=== PATIENT | female | born 1955 | race Caucasian/White ===

== ENCOUNTER 2017-08-21 18:50 | Inpatient (IN) | payer BC ==
[2017-08-21] VITALS (17 sets, daily range): BP systolic 82–128; BP diastolic 40–88
[~2017-08-21] VITALS: Ht 167.6 cm; Wt 62.2 kg
--- NOTE | ~2017-08-21 | PR ---
[place], [place] PROGRESS NOTE NAME: SUZANNE VALDIVIA UNIT #: [id number] ROOM: [facility] DOCTOR: LYNDON WORTHY MD BIRTHDATE: [birth year] DOS: 08/25/2017 SUBJECTIVE: She has a bronchoscopy done yesterday with removal of mucus plug from major airways. The patient underwent EGD later and the patient was still intubated. The endoscopy was completed for this patient yesterday and EGD was noted with evidence of a denture displaced present in the hypopharynx. The denture was pulled out. These were noted as upper dentures. She was further continued and the patient completed the endoscopy. The patient noted several ulcer in the stomach, most likely resulting in GI bleeding. During course of procedure, the patient was accidentally extubated as well. The endotracheal tube was removed; however, post-extubation she has done well and was started on BiPAP that has been tolerated by the patient for several hours. This morning, the patient still appeared to be somewhat sleepy, but used the BiPAP and oxygen supplementation. She has not been noted any symptoms of chest pain. Low grade fever noted rectally and orally. OBJECTIVE: VITAL SIGNS: Temperature 99.9 degree Fahrenheit with a T-max recorded. Intake is 2000, output 800 mL. The pulse oxygen saturation of the patient on 5 liter nasal cannula simple face mask was 98% saturation. HEENT: Examination shows head was atraumatic. Eyes nonicterus. NECK: Supple. CARDIOVASCULAR: S1, S2 is audible. LUNGS: Noted with decreased breath sounds in the lungs. Scattered wheezing. ABDOMEN: Soft, nontender. LABORATORY DATA: The patient's CMP today, normal BUN and creatinine. Phosphorus was 1.4. Urine antigen, streptococcal pneumonia was noted as positive. Legionella antigen noted negative. Bronchial washing culture was noted no bacterial growth, preliminary final culture results were pending. Gram stain bronchial washing yesterday, few white blood cells, no epithelial cells, no microorganisms. IMPRESSION: 1. The patient who has been currently noted with acute pneumonia, streptococcal pneumonia with acute severe hypercapnic and hypoxic respiratory failure with exacerbation of chronic obstructive pulmonary disease. 2. Gastrointestinal bleeding with peptic ulcers. PLAN OF MANAGEMENT: Obtain arterial blood gas for the patient to reassess the ventilatory status. Continue antibiotic for this patient as directed for the streptococcal pneumonia management. Bronchodilators to be continued. The dose of Solu-Medrol will be decreased to 40 mg b.i.d. from today. All other previous treatment to be continued. Usual care. Additional treatment changes to be made based on progression of illness. Use of the BiPAP will be continued. Adjustment of BiPAP might be necessary depending upon assessment of the new arterial blood gases. [place], [place] PROGRESS NOTE NAME: SUZANNE VALDIVIA UNIT #: [id number] ROOM: [facility] DOCTOR: LYNDON WORTHY MD BIRTHDATE: [birth year] LYNDON BERMUDEZ MD CM:JAS [id number] LYNDON CONNER MD 08/26/17 0003 interface
--- NOTE | ~2017-08-21 | PR ---
[place], [place] PROGRESS NOTE NAME: SUZANNE VALDIVIA UNIT #: [id number] ROOM: [facility] DOCTOR: AIDAN CONNER MD,LYNDON BIRTHDATE: [birth year] DOS: 08/26/2017 SUBJECTIVE: The patient has been noted comfortable at this time without any distress, much more awake and alert than yesterday. She has not been reported any symptoms of chest pain or hemoptysis. The patient could not take much of oral food at this time. She has not taken her usual care, which has been ordered because of the lack of oral intake. She has now been noted with symptoms of hemoptysis with the BiPAP as ordered. Limited symptoms reviewed given the patient's current overall status. She has not been noted any active bleeding or GI tract. OBJECTIVE: VITAL SIGNS: Showed normal temperature, respiratory rate 19, heart rate 75, blood pressure 123/78 and 121/85, pulse oxygen saturation on 35% Venturi mask 92% with 40% oxygen, 94% saturation. HEENT: Shows head was atraumatic. Eyes nonicterus. NECK: Supple. CARDIOVASCULAR: S1, S2 audible. LUNGS: Noted moderate decreased breath sounds noted in the lungs bilaterally. ABDOMEN: Soft, nontender. Bowel sounds present. EXTREMITIES: Noted without any acute edema at this time. MUSCULOSKELETAL: Symptoms visible, no deformities. GENITOURINARY: General weakness, fatigue were noted, does not appear to have an acute focal deficits. SKIN: Visible skin, no lesions or rashes. LABORATORY DATA: CMP this morning noted normal BUN and creatinine. Sodium 150, chloride of 109, carbon dioxide 35, AST 104, ALT 73. Arterial blood gas of yesterday, pH of 7.39, pCO2 of 50, pO2 of 49 on 40% Venturi mask. The culture bronchial washing noted as normal michael. IMPRESSION: 1. Acute Streptococcal pneumonia. 2. Acute but stable severe hypoxic respiratory failure with resolution of hypercapnia. 3. Lack of oral intake. 4. Hypernatremia was also noted. 5. Oral general debility remains persistent. 6. Exacerbation of chronic obstructive pulmonary disease as well. PLAN OF TREATMENT: Continuation of the current therapy at this time has been in progress. Continue bronchodilators, oxygen supplementation, continue antibiotics. Continue current dose of corticosteroids, no changes, bedside physical therapy, obtaining a new chest x-ray for assessment of any further changes on the respiratory status. Continue medical management, ____. [place], [place] PROGRESS NOTE NAME: SUZANNE VALDIVIA UNIT #: [id number] ROOM: [facility] DOCTOR: AIDAN CONNER MD,LYNDON BIRTHDATE: [birth year] LYNDON BERMUDEZ MD CM:JAS [phone] LYNDON CONNER MD 08/27/17 0158 interface
--- NOTE | ~2017-08-21 | CON ---
[place], [place] REPORT OF CONSULTATION NAME: SUZANNE VALDIVIA UNIT #: [id number] ROOM: [facility] DOCTOR: LYNDON WORTHY MD BIRTHDATE: [birth year] DOS: 08/22/2017 PULMONARY CRITICAL CARE EVALUATION, MANAGEMENT, AND CONSULTATION CONSULTATION REQUESTED BY: Hospitalist services. REASON FOR CONSULTATION: For the medical management of current exacerbation of COPD and acute respiratory failure. HISTORY OF PRESENT ILLNESS: The patient is unable to give any history. All the history is contained in a document is actually review of the medical record. The patient is in current hospitalization by the other physician and the nurse's notes. This is a 62-year-old female who has been known with past history of COPD brought to the Emergency Room by the EMS. The patient has been reported symptoms of change in mental status as well as severe shortness of breath. The patient has been noted lethargic. The patient is unresponsive, unable to give any history. History has been reported by the EMS of symptom duration of 3 days. The patient was also noted with severe hypoxia as the patient was assessed on field. She was started on the CPAP. She was started on intravenous fluids. The patient has been intubated and started on mechanical ventilation because of severe acute hypercarbic and hypoxic respiratory failure. The patient has been transferred to Intensive Care Unit where she is currently treated and remained on the mechanical ventilator. She has been receiving assist control, volume control, mechanical ventilation with some changes. Other mechanical ventilation was done for the patient after I was called in for consultation. She has been noted excessive amount of secretion production, which has been suctioned out frequently from the endotracheal aspirate described to be thick yellowish. There were no findings of hemoptysis reported. The patient did not require any vasopressor therapy at the present time. Sedation has been given for the patient with a form of intravenous Diprivan. She has been given Ketamine injection, later was started on intravenous Ketamine drip until it completely finish and the patient was switched to the sedation with use of the propofol. She was also noted coffee-ground emesis per nursing staff at this time and has been kept n.p.o. with assessment to be done by the GI staff. REVIEW OF SYSTEMS: Could not be completed as the patient is currently on mechanical ventilation, unresponsiveness. PAST MEDICAL HISTORY: Essentially reported with general anxiety disorder and depression. SOCIAL HISTORY: The patient was brought to the hospital from home. Whether the patient has any tobacco use previously or not unknown. There was no history of illicit drug use reported. There was no history of alcohol use reported in the history as well. PAST SURGICAL HISTORY: Reported for cholecystectomy. [place], [place] REPORT OF CONSULTATION NAME: SUZANNE VALDIVIA UNIT #: [id number] ROOM: [facility] DOCTOR: AIDAN CONNER MD,LYNDON BIRTHDATE: [birth year] FAMILY HISTORY: Completely unknown. HOME MEDICATIONS: Listed use of Xanax and Prozac. DRUG ALLERGY HISTORY: The patient has been reported with no known drug allergies. PHYSICAL EXAMINATION: GENERAL: This is a 62-year-old female who has been currently noted intubated, sedated adequately without any distress. Her height was recorded at 5 feet 6 inches, weight of 137 pounds, and BMI 22.1 on this hospitalization. VITAL SIGNS: The temperature of the patient was noted as normal temperature rectally and orally. Respiratory rate ranges between 10 and 20 at times. Heart rate ranges between 88 and 102. The blood pressure recorded as 122/77 and 87/56. Pulse oxygen saturation on 40% oxygen recorded as 98% saturation. HEENT: Currently, the patient is orally intubated, endotracheal tube #7.5 [place]. Orogastric tube has been inserted, which was connected to low intermittent suction. The neck was supple. Head was atraumatic. Eyes nonicterus. CARDIOVASCULAR: S1, S2 audible. LUNGS: The patient was noted with generalized reduction in breath sounds with diffuse expiratory wheezing. There were no crackles heard. ABDOMEN: Flat, soft, and nontender with bowel sounds present. EXTREMITIES: The patient does not show any edema, clubbing, or cyanosis. VISIBLE SKIN: No lesions or rashes. MUSCULOSKELETAL: The patient was noted without any acute deformities. CENTRAL NERVOUS SYSTEM: The patient is currently sedated. She has not been reported any focal neurologic deficit previously or change in mental status has been reported. LABORATORY DATA: The lactic acid this morning was 2.8 on admission. The BMP this morning on admission was essentially noted as normal. CBC for the patient, normal WBC, hemoglobin, hematocrit, and platelet count. The arterial blood gas of the patient on 100% oxygen, pH of 7.24, pCO2 of 60, and pO2 424 on admission. The PT and PTT for the patient this morning, INR 1.2, PTT normal. Urine culture for the patient was pending. The urinalysis of the patient was noted with 3+ blood. Urine drug screen noted positive for benzodiazepine, which has been noted on her home medications. CMP of the patient this morning, BUN 35, creatinine was normal. Sodium 135, potassium 5.3, and chloride 95. AST 2,195 and ALT 1,483. The troponin first set was 0.45. The ammonia level noted as 36. Troponin second set 0.558. The lactic acid was 1.4. PT/PTT of the patient this morning was repeated again normal. CBC this morning remains normal. CMP of the patient this morning, BUN 27 and creatinine was normal. LFTs for the patient that was done was noted with further elevation of AST and ALT, AST of 3,000 and ALT of 5,010. Arterial blood gas that was done this morning, tidal volume 550 mL, 40% oxygen, assist control, volume control, pH of 7.27, pCO2 of 52, and pO2 of 82.3. DIAGNOSTIC DATA: The review of the radiology data: The chest x-ray of the patient that was done on admission post-intubation shows endotracheal tube was [place], [place] REPORT OF CONSULTATION NAME: SUZANNE VALDIVIA UNIT #: [id number] ROOM: [facility] DOCTOR: ASIA WORTHY MDM BIRTHDATE: [birth year] noted about 2.5 cm above the bennie level. The NG tube was noted in the stomach. There was no visible gross pulmonary infiltration except basilar small patchy infiltration can be completely excluded. The patient has a CT scan of the chest done as well, which was personally reviewed as well without contrast, changes of COPD, and emphysema noted in the lungs bilaterally. Bilateral radicular nodular opacities in the lung, nodular formation appeared to be more of like an infiltrate in the lungs bilaterally that involve right lower lobe, left lower lobe, right middle lobe, and the left lingula. The CT scan of the abdomen and pelvis reported by the radiologist without any acute intraabdominal or pelvic pathologies. IMPRESSION: 1. The patient who had been currently admitted to the hospital noted with change in mental status related to current acute severe, hypercarbic and hypoxic respiratory failure. 2. The patient with bilateral radicular nodular opacity. The patient suspected for acute pneumonia. 3. The patient with coffee-ground vomiting may be gastritis or other etiologies. 4. Elevation of AST and ALT with possibility of rhabdomyolysis will be considered. Urine drug screen of the patient does not show any use of illicit drugs. 5. Suspicion of protein-calorie malnutrition. 6. Mild azotemia for this patient as well. 7. Lactic acidosis with current acute sepsis on admission, mostly originating from the acute pneumonia. PLAN OF MANAGEMENT: The patient has been ordered the CPK. Continuation of intravenous fluid for the patient as previously ordered. The patient was getting the intravenous Solu-Medrol 60 mg b.i.d. that will be continued. Monitor culture results and endotracheal aspirate if necessary for the patient, and do a bronchoscopy as well. The patient is currently getting intravenous Levaquin, vancomycin, and IV Zosyn triple antibiotic coverage for the acute severe pneumonia in Intensive Care admission. Antibiotic spectrum will be decreased based on the culture results. Continuation of bronchodilators every 4 hours. The tidal volume changes have been made by decreasing tidal volume 500 mL, increasing peak flow to help more time for exhalation and improvement in the hypercapnia. The liver serology of the patient could be also done as part of the current workup because of the abnormal AST and ALT. Usual care. All other supportive plan of management. Adequate fluid administration to prevent the acute kidney injury with suspected rhabdomyolysis. DVT prophylaxis. Ventilator bundle management has been initiated. Assessment with the GI is pending for the patient for the possibility of GI bleeding. Once that is clarified; certainly, the patient will be started on nutritional support. In the meantime, continue DVT prophylaxis. Total time in pulmonary and critical care evaluation and management was 45 minutes. [place], [place] REPORT OF CONSULTATION NAME: SUZANNE VALDIVIA UNIT #: [id number] ROOM: [facility] DOCTOR: LYNDON WORTHY MD BIRTHDATE: [birth year] LYNDON BERMUDEZ MD CM:CONSTR:REPORT OF CONSULTATION 1027 08/23/17 0308 interface
--- NOTE | ~2017-08-21 | PROC NOTE ---
[place], [place] PROCEDURE NOTE NAME: SUZANNE VALDIVIA UNIT #: [id number] ROOM: [facility] DOCTOR: AIDAN CONNER MD,LYNDON BIRTHDATE: [birth year] DOS: 08/24/2017 BRONCHOSCOPY PREOPERATIVE DIAGNOSES: The patient with a cough with excessive thick secretion, which was suctioned out intermittently by the respiratory and the nursing staff for the past few days since hospitalization on the mechanical ventilator. POSTOPERATIVE DIAGNOSES: The patient with a cough with excessive thick secretion, which was suctioned out intermittently by the respiratory and the nursing staff for the past few days since hospitalization on the mechanical ventilator with finding of tracheobronchitis and somewhat high-riding endotracheal tube. PROCEDURE DESCRIPTION: Informed consent obtained from the patient. The patient was continued on mechanical ventilation. The procedure done in negative pressure room in the Intensive Care Unit. The rigid fiberoptic bronchoscope was advanced to the endotracheal tube to the lower part of trachea. The endotracheal tube was noted about 5.5 cm above the mira level. Diffuse redness and edema of the tracheal lumen was noted. Small scattered purulent secretion suctioned out. Mira noted sharp. A small to moderate amount of thick mucopurulent secretion present on bronchial tree bilaterally, suctioned out with the help of normal saline lavage without any difficulty. There were no endobronchial obstructive lesions. Endotracheal tube was adjusted to appropriate level 4 cm above the mira level under direct endoscopic view. The procedure was tolerated by the patient without difficulty. Postoperative findings will be discussed with the patient's family members later. The bronchial washing was sent for all the cultures needed on the bronchial washings. The patient will be undergoing EGD today by the residency program coordinator. After that, the patient will be started on CPAP 5, pressure support of 10 for a couple of hours if tolerated obtaining arterial blood gases. After that, the patient will be considered for possible liberation of mechanical ventilation and post-extubation with use of the BiPAP to stabilize acute on chronic hypercapnic and hypoxic respiratory failure management. Nutrition support will be finalized for the patient after that. LYNDON BERMUDEZ MD CM:PROCNOTE:PROCEDURE NOTE [id number] LYNDON CONNER MD
--- NOTE | ~2017-08-21 | PR ---
[place], [place] PROGRESS NOTE NAME: SUZANNE VALDIVIA UNIT #: [id number] ROOM: [facility] DOCTOR: AIDAN CONNER MD,LYNDON BIRTHDATE: [birth year] DOS: 08/28/2017 SUBJECTIVE: The patient was noted comfortable at this time without any distress. She has now been noted symptoms of chest pain. She has been noted with acute oxygen desaturation that occurred last night. She has used the BiPAP. The oxygen supplementation was increased with patient significantly up to 8 liters initially noted 50% Venturi mask to treat the hypoxia. The patient has now been noted with symptoms of hemoptysis. Her oral intake still remains very limited. She has now been noted with hematemesis and melena. Denies symptoms of nausea, vomiting or diarrhea or any abdominal pain. Denies symptoms of headache or diplopia. Still noted any weakness and fatigue. Remaining systems were reviewed, they were noted all negative. OBJECTIVE: VITAL SIGNS: For the patient which were recorded. The patient showed normal temperature, respiratory rate 19, heart rate 77, blood pressure 120/68. Pulse oxygen saturation were recorded as 82%, previously on 5 liter nasal cannula. Rate in the Venturi mask was 90% and this morning was 8 liters, high flow nasal cannula. The patient's saturation noted 94%. HEENT: Examination shows head was atraumatic. Eyes nonicterus. NECK: Supple. CARDIOVASCULAR: S1, S2 is audible. LUNGS: The patient was noted without any wheezing or crackles at the present time. ABDOMEN: Soft, nontender. EXTREMITIES: Without any edema, clubbing or cyanosis. MUSCULOSKELETAL: Noted without any acute deformities. CENTRAL NERVOUS SYSTEM: Cranial nerves 2-12 intact. No weakness, fatigue were noted. SKIN: Visible skin, no lesions or rashes. MUSCULOSKELETAL: Without any acute deformities. LABORATORY DATA: Arterial blood gas that I ordered for the patient done at 8 liter nasal cannula, pH of 7.45, pCO2 of 48, pO2 of 72. BMP this morning, BUN 12, creatinine was normal 0.37. CO2 35. The CBC of the patient this morning, WBC count 12,000, hemoglobin 12.8, hematocrit 38.2, platelet count 188,000. IMPRESSION: 1. The patient acute on chronic hypoxic respiratory failure with previously treated for pneumonia. 2. Bilateral pleural fluid, possible fluid overload or congestive heart failure. 3. Severe debility. 4. Status post removal of foreign body for patient from the hypopharynx. 5. Gastrointestinal bleeding. 6. Severe debility. PLAN OF TREATMENT: Obtain a chest x-ray of patient to further assess the etiology of the current hypoxia. Diuretic therapy to be continued. Other [place], [place] PROGRESS NOTE NAME: SUZANNE VALDIVIA UNIT #: [id number] ROOM: [facility] DOCTOR: AIDAN CONNER MD,LYNDON BIRTHDATE: [birth year] supportive therapy, plan and management previously be continued as well. Usual care. All other supportive therapy, plan of management continued as well. Continue the use of BiPAP for the patient as tolerated, to treat the respiratory failure. If the pleural fluid noted with large certainly, thoracentesis could be assessed. Otherwise, conservative treatment to be continued. LYNDON BERMUDEZ MD CM:PNTRANS [phone] LYNDON CONNER MD 08/29/17 0139 interface
--- NOTE | ~2017-08-21 | O ---
[place], [place] OPERATIVE NOTE NAME: SUZANNE VALDIVIA UNIT #: [id number] ROOM: [facility] DOCTOR: DASIA ARMAS MD BIRTHDATE: [birth year] DOS: 08/24/2017 HISTORY OF PRESENT ILLNESS: The patient has presented with respiratory insufficiency, flu positive. She has had lactic acid of 2.8 at the time of admission with H and H of 13 and 40. She has had hematemesis. We have been asked for seeing her patient in this regard. The patient's pH has been prior to intubation 7.2. Her INR was 1.2. Drug screening was positive for benzodiazepine. Her comprehensive metabolic panel and electrolyte balance is slight borderline elevation of potassium. AST and ALT 2100 and 1400+ with BNP of 12,000, which gradually has improved that signifies hypoperfusion pathology, which is expected with this pH and status. Her blood cultures were negative. She has had bronchoscopy with mucus plug removal. PAST MEDICAL HISTORY: Associated with anxiety and depression. PAST SURGICAL HISTORY: COPD, appendectomy, and cholecystectomy. SOCIAL HISTORY: Smoker. FAMILY HISTORY: Unknown. MEDICATIONS: Xanax and Prozac. ALLERGIES: No known medications. REVIEW OF SYSTEMS: Cannot be assessed. The patient is intubated. PROCEDURE: Today's procedure part of investigation is panendoscopy plus foreign body extraction from the hypopharynx plus photographic series. PREMEDICATION: Versed and Diprivan. SCOPE: Olympus forward-viewing gastroscope Q10 video. REPORT: After putting the patient in supine position, scope was introduced into hypopharynx. I am ending up with a foreign body blocking the view of the scope. Therefore, scope was withdrawn and digitally very deep in the throat was searched and upper dentures, which has mobilized into the hypopharynx was digitally extracted. At this stage, the patient was scoped and gastric pouch was entered. Multiple gastric ulcerations noticed. Air was suctioned out. The patient was extubated and tolerated the procedure well. Meanwhile, the patient was extubated and orogastric tube was removed to be replaced. IMPRESSION: Multi-gastric ulcers, hypopharyngeal foreign body migrated upper dentures. The etiology of hematemesis is multi-gastric ulcers. PLAN AND DISCUSSION: Protonix 40 mg IV b.i.d., Carafate 1 gram q.i.d., slurry form through NG tube, continuation with intubation status and clinical reassessment. [place], [place] OPERATIVE NOTE NAME: SUZANNE VALDIVIA UNIT #: [id number] ROOM: [facility] DOCTOR: PAWEL SALAS,DASIA BIRTHDATE: [birth year] Thank you very much again. DASIA ARMAS MD CM:OPRECORD:OPERATIVE NOTE [id number] DASIA ARMAS MD 08/24/17 1547 interface
--- NOTE | ~2017-08-21 | PR ---
[place], [place] PROGRESS NOTE NAME: SUZANNE VALDIVIA UNIT #: [id number] ROOM: [facility] DOCTOR: AIDAN CONNER MD,LYNDON BIRTHDATE: [birth year] DOS: 08/27/2017 SUBJECTIVE: She has been noted comfortable at this time in the Intensive Care Unit. She has been still noted significant weakness and fatigue. The patient has not been noted symptoms of chest pain or any acute hemoptysis. BiPAP has been used as ordered; this morning, using oxygen supplementation nasal cannula. OBJECTIVE: VITAL SIGNS: She remains afebrile, respiratory rate 18, heart rate of 81%, ____ recorded this afternoon. Vital signs for the patient with pulse ox saturation on BiPAP 97% saturation and on the high flow nasal cannula at 98% saturation as well. HEENT: No acute change. NECK: Supple. CARDIOVASCULAR: S1, S2 audible. LUNGS: No wheeze or crackles. ABDOMEN: Soft, nontender. EXTREMITIES: Without any acute edema. LABORATORY DATA: CBC: WBC count 11.6, hemoglobin 11.1, platelet count were normal. Blood culture from 08/21/2017 showed no bacterial growth. CMP: BUN 13, creatinine was normal. CO2 36. IMPRESSION: Resolving acute pneumonia with resolving acute hypercapnic and hypoxic respiratory failure and exacerbation of chronic obstructive pulmonary disease as well. PLAN OF THERAPY: Decrease Solu-Medrol to 40 mg daily at the present time. Continuation of other previous treatment, therapy and plan of management for the acute pneumonia. Usual care and other supportive plan of therapies. LYNDON BERMUDEZ MD CM:PNTRANS [id number] LYNDON CONNER MD 08/28/17 0659 interface
--- NOTE | ~2017-08-21 | PR ---
[place], [place] PROGRESS NOTE NAME: SUZANNE VALDIVIA UNIT #: [id number] ROOM: [facility] DOCTOR: ROSETTE LOPEZ MD BIRTHDATE: [birth year] DOS: 08/28/2017 CARDIOLOGY PROGRESS NOTE SUBJECTIVE: The patient was seen today at her bedside in the Intensive Care Unit with her in attendance on 08/28/2017. She is wide awake, alert and appropriate. She is currently on oxygen by nasal cannula and breathing easily. She does have hoarse cough. She does believe, however, that she is improving and is anxious to be discharged from the hospital. OBJECTIVE: VITAL SIGNS: Today show a pulse of 77 and regular, blood pressure is 120/68, pulse oximetry on nasal cannula is 93%. She is afebrile. She weighs 62.2 kilograms with a body mass index of 22.1. NECK: Supple. She has no jugular distention. Carotids are full. I heard no bruits. She had no neck or supraclavicular masses. LUNGS: Respirations are tachypneic. She has coarse breath sounds with crackles at the bases bilaterally as well as expiratory prolongation. HEART: Has distant tones. She has a fourth heart sound, but no third heart sound or obvious murmur. ABDOMEN: Soft. EXTREMITIES: Showed no edema. Her echocardiogram done 08/22/2017 showed normal left ventricular size and regional wall motion with an ejection fraction of 61% and stage 1 diastolic relaxation abnormalities. No significant valve abnormalities were noted. Troponin level today was 0.026 and within normal limits. IMPRESSION: 1. Influenza A. 2. Bilateral pneumonia. 3. Mild elevation in troponin when she was critically ill. 4. assisted and ongoing cigarette abuse up until this hospitalization with probable chronic obstructive pulmonary disease. 5. Abnormal liver function studies consistent with shock liver. PLAN: The patient is clinically improving; however, she does have a family history of coronary artery disease along with her mild elevation in troponin. Once she has recovered from her acute illness, we will plan on a pharmacologic stress test in order to see if she has coronary disease and the amount of myocardium at risk to help up plan future therapies. her current medical management appears to be appropriate. We thank the hospitalist physicians for asking our advice regarding her care. [place], [place] PROGRESS NOTE NAME: SUZANNE VALDIVIA UNIT #: [id number] ROOM: [facility] DOCTOR: ROSETTE LOPEZ MD BIRTHDATE: [birth year] ROSETTE LOPEZ MD CM:PNTRANS [id number] ROSETTE LOPEZ MD 08/28/17 2018 interface
--- NOTE | ~2017-08-21 | PR ---
[place], [place] PROGRESS NOTE NAME: SUZANNE VALDIVIA UNIT #: [id number] ROOM: [facility] DOCTOR: ROSETTE LOPEZ MD BIRTHDATE: [birth year] DOS: 08/27/2017 SUBJECTIVE: The patient was seen today at her bedside in the intensive care unit with her in attendance. It is 08/27/2017. She is currently sleepy, but arousable. She is on BiPAP and has tolerated extubation. She is still somewhat tachypneic. Her most recent chest x-ray done on 08/26/2017 showed small bilateral pleural effusions with underlying pneumonia. She is recovering from influenza A. PHYSICAL EXAMINATION: VITAL SIGNS: Today, her pulse is 88 and regular, blood pressure is 128/76. She is afebrile. NECK: Supple. She has no jugular distention. Carotids are full. LUNGS: Respirations are slightly tachypneic and she is on BiPAP. She has coarse breath sounds with expiratory prolongation bilaterally. HEART: Has distant tones with an S4 gallop, but no S3 or murmur. ABDOMEN: Soft. EXTREMITIES: Showed no edema. Echocardiogram done 08/22/2017 showed normal left ventricular size, wall thickness and regional wall motion with an ejection fraction of 60%, stage 1 diastolic relaxation abnormalities. Right ventricular function was normal and there was no significant valve abnormality. IMPRESSION: 1. Influenza A. 2. Mild elevation in troponin, which was 0.45, 0.55 and 0.45 on three occasions on August 21 and . 3. detention and ongoing cigarette abuse up until this hospitalization with probable chronic obstructive pulmonary disease. 4. Abnormal liver function studies with shock liver. PLAN: We will continue to observe her in the hospital. She does have a family history of coronary artery disease and therefore once she has recovered from her acute illness, we will plan a pharmacologic stress test. In order to see what the pattern of her troponin elevation is, I will be obtaining a routine troponin level in the morning. We thank the hospitalist physicians for asking our advice regarding her care. [place], [place] PROGRESS NOTE NAME: SUZANNE VALDIVIA UNIT #: [id number] ROOM: [facility] DOCTOR: ROSETTE LOPEZ MD BIRTHDATE: [birth year] ROSETTE LOPEZ MD CM:PNTRANS [id number] ROSETTE LOPEZ MD 08/27/17 2313 interface
--- NOTE | ~2017-08-21 | PR ---
[place], [place] PROGRESS NOTE NAME: SUZANNE VALDIVIA UNIT #: [id number] ROOM: [facility] DOCTOR: LYNDON WORTHY MD BIRTHDATE: [birth year] DOS: 08/24/2017 SUBJECTIVE: The patient was seen and examined on 08/24/2017. Remains in Intensive Care Unit sedated. She was planned for bronchoscopy. Feeding for the patient has not been done. She was also planned for EGD evaluation to be done by the Gastroenterology Service for assessment possibility of GI bleeding. She has not been noted any hematemesis or melena at the present time. She has not been reported abdominal pain. Mental status noted with sedation vacation as normal. She has not been noted any respiratory problem. Low grade fever noted with 100.2-99.7 degree Fahrenheit intermittently. OBJECTIVE: VITAL SIGNS: Other vital signs, the patient's respiratory rate range between 16-12, heart rate of 98-100. Blood pressure 190/51-125/79. Intake for the patient is 3900 mL, output 1500 mL. The pulse oxygen saturation 35% oxygen on the CPAP was noted as 94% saturation. HEAD AND NECK: The patient remained orally intubated, orogastric tube is in place. Neck was supple. Head was atraumatic. CARDIOVASCULAR: S1, S2 audible. LUNGS: The patient noted with moderate decreased breath sounds. The patient noted with expiratory wheezing. There were no crackles. ABDOMEN: Flat, soft, nontender. EXTREMITIES: With no edema, clubbing, cyanosis. MUSCULOSKELETAL: Without any acute deformities. CENTRAL NERVOUS SYSTEMS: Noted intact. MENTAL STATUS: Reduction of sedation on sedation vacation. LABORATORY DATA: Culture of endotracheal aspirate noted normal growth, normal michael, isolation for this patient with light growth of yeast. CBC today WBC count 12.2, hemoglobin 10.4, hematocrit 31.6, platelet count 171,000, 85% segmented neutrophils. Arterial blood gas on the assist control, volume control, mechanical ventilation, pH of 7.34, pCO2 of 55, pO2 of 96.3. BMP this morning noted normal BUN and creatinine, glucose 119, CO2 of 33. Total protein of 2.3. AST 66, ALT 1433. Further continued to improve significantly. The lactic acid that was done yesterday of 1.0, normal. Chest x-ray shows endotracheal tube about 5.5 cm above the bennie level. Hyperinflation of the lungs were noted. IMPRESSION: 1. The patient currently noted with persistent acute severe hypercapnia hypoxic respiratory failure and acute tracheobronchitis with intermittent thick secretion production, planned for bronchoscopy. 2. Protein calorie malnutrition, noted severe. 3. Gastrointestinal bleeding was also suspected for the patient as well. The anemia has been noted stable. 4. The patient with past history of nicotine abuse. 5. Metabolic alkalosis secondary to chronic hypercarbia as well. 6. Hypertension, which has been managed with vasopressors. PLAN OF MANAGEMENT: Continue the current ventilator bundle management, [place], [place] PROGRESS NOTE NAME: SUZANNE VALDIVIA UNIT #: [id number] ROOM: [facility] DOCTOR: AIDAN CONNER MD,LYNDON BIRTHDATE: [birth year] antibiotics, which has been changed yesterday with reduction in spectrum of antibiotic coverage. Continuation of the bronchodilators, titrate to maintain oxygen saturation 92% or greater. The Solu-Medrol will be continued at 60 mg b.i.d. as well. Continuation of the Levaquin and the influenza A infection management with the Tamiflu. After the bronchoscopy was once performed for this patient, additional changes in the treatment will be done accordingly. Continue bronchodilators every 4 hours. Supportive care therapy, plan of management. Total time of pulmonary critical care evaluation and management today excluding any billable procedure is 32 minutes. LYNDON BERMUDEZ MD CM:PNTRANS [id number] LYNDON CONNER MD 08/25/17 0340 interface
--- NOTE | ~2017-08-21 | PR ---
[place], [place] PROGRESS NOTE NAME: SUZANNE VALDIVIA UNIT #: [id number] ROOM: [facility] DOCTOR: ROSETTE LOPEZ MD BIRTHDATE: [birth year] DOS: 08/29/2017 SUBJECTIVE: The patient was seen at her bedside in the intensive care unit today, 08/29/2017, for followup of her hospitalization with respiratory failure and elevated troponin. She does seem to be getting better gradually. She still shows some signs of chronic respiratory failure, but is improving. She is scheduled to be transferred to the [facility] ([facility]) later today. PHYSICAL EXAMINATION: VITAL SIGNS: Today, her pulse is 79 and regular, blood pressure is 117/63. She is afebrile. She weighs 62.2 kg and has a body mass index of 22.1. HEENT: Normocephalic and atraumatic. Extraocular muscles are intact. Sclerae are clear. Pupils are equal, round and react to light. The oral mucosa is moist. Tongue is midline. She does appear to have thrush. NECK: Supple. She has no jugular distention. Carotids are full. LUNGS: Respirations are unlabored. Her chest has decreased breath sounds at the bases bilaterally. HEART: Has a regular rhythm and S4 gallop and no S3. ABDOMEN: Soft and normoactive. EXTREMITIES: Showed no edema. IMPRESSION: 1. Influenza A. 2. Bilateral pneumonia. 3. Mild elevation in troponin earlier this hospitalization. This has improved. 4. intermediate frame tender and ongoing cigarette abuse up until the time of this hospitalization with chronic obstructive pulmonary disease. 5. Abnormal liver function studies consistent with shock liver, improved. PLAN: The patient is clinically improving, but she does have a family history of coronary artery disease along with a mild elevation in troponin earlier this hospitalization. She is being transferred to the [facility] for further care and rehabilitation. I would like to see her back after she has been discharged for reassessment of her cardiac status and probable myocardial perfusion imaging. I thank the hospitalist physicians for asking our advice regarding her care. [place], [place] PROGRESS NOTE NAME: SUZANNE VALDIIVA UNIT #: [id number] ROOM: [facility] DOCTOR: ROSETTE LOPEZ MD BIRTHDATE: [birth year] ROSETTE LOPEZ MD CM:PNTRANS [id number] ROSETTE LOPEZ MD 08/29/172240 interface
--- NOTE | ~2017-08-21 | PR ---
[place], [place] PROGRESS NOTE NAME: SUZANNE VALDIVIA UNIT #: [id number] ROOM: [facility] DOCTOR: LYNDON WORTHY MD BIRTHDATE: [birth year] DOS: 08/23/2017 PULMONARY CRITICAL CARE EVALUATION AND MANAGEMENT SUBJECTIVE: The patient remained on the mechanical ventilator at the present time. The hepatic serology was done, which was noted all negative. She has been noted with thick secretion, which has been noted intermittent suction by the respiratory and nursing staff with endotracheal aspirate. The patient still remains n.p.o. because of suspected GI bleeding. The patient has been ordered consultation to be done by the GI services, which was pending at this time. The patient has not been noted any other complications at the present time. From the respiratory standpoint, the oxygen supplementation was continued 40% oxygen with assist control, volume control, and mechanical ventilation. The blood pressure of the patient has been noted essentially stable. The intravenous Diprivan was given with Versed for the adequate sedation. OBJECTIVE: VITAL SIGNS: The vital signs of the patient, which has been recorded shows temperature 99.5 degree Fahrenheit, respiratory rate 13-20, heart rate 96-113, and blood pressure 96/55-101/52. The pulse oxygen saturation on 40% oxygen was 94% saturation recorded. HEENT: Examination shows head was atraumatic. Eyes nonicterus. The patient remains intubated. Orogastric tube is in place. NECK: Supple. CARDIOVASCULAR: S1, S2 audible. LUNGS: Severe reduced breath sounds are noted in the lungs bilaterally. Scattered wheezing. There were no crackles heard. ABDOMEN: Flat, soft, and nontender. EXTREMITIES: The patient without any acute edema. VISIBLE SKIN: No lesions or rashes. MUSCULOSKELETAL: Without acute deformities. LABORATORY DATA: Arterial blood gas this morning, pH of 7.29, pCO2 of 55.5, pO2 of 86.0, tidal volume 500 mL, peak flow of 70 with a respiratory rate of 12, 40% oxygen, and PEEP of 5.0. CBC this morning, WBC count 11.4, hemoglobin 10.8, hematocrit 33.2, and platelet count 166,000. A 85% segmented noted with the differentials. The hepatic panel of the patient this morning, AST of 1,183, ALT of 2,017 with alkaline phosphatase normal. Bilirubin normal. Albumin 2.4. Total protein of 5.2. Prealbumin level yesterday was noted as 5.0. Influenza A and B, nasal washing is noted positive for influenza A infection. CPK yesterday was done was noted as 517. Blood culture for the patient from 08/21/2017 showed no bacterial growth. Preliminary final results are pending. Vancomycin trough noted as 6.9. DIAGNOSTIC DATA: One view chest x-ray of the patient that was done this morning showed changes of COPD, hyperinflated lung without any gross pulmonary infiltration. IMPRESSION: 1. The patient will be currently admitted to the hospital. The patient noted [place], [place] PROGRESS NOTE NAME: SUZANNE VALDIVIA UNIT #: [id number] ROOM: [facility] DOCTOR: AIDAN CONNER MD,[facility] BIRTHDATE: [birth year] with acute hypoxic respiratory failure. The patient has hypercapnia. 2. Acute exacerbation of chronic obstructive pulmonary disease. 3. Nicotine dependence. 4. Strong suspicion of rhabdomyolysis with normal AST and ALT and elevated CPK as well. 5. Possibility of gastrointestinal bleeding for the patient has been considered as well. Hemoglobin and hematocrit of the patient today was noted with a hemoglobin 10.8 and hematocrit was noted at 30. CBC of the patient on admission was noted with a hemoglobin 12.7 and hematocrit 39.3. Reduction in hemoglobin and hematocrit may be related to GI bleeding or volume dilution because of the intravenous fluids administration. 6. The patient with acute influenza A infection as well. PLAN OF MANAGEMENT: Reduction of the antibiotic spectrum for this patient at this time. Continuation of the Tamiflu for this patient. Discontinue the vancomycin and IV Zosyn if not necessary. There was no evidence of any abnormal cultures of the patient or pulmonary infiltration noted in the chest x-ray. Continue Solu-Medrol. The nutritional support to be decided after discussion with the GI Service. If the patient could be started on nutritional support or TPN. The patient was noted severe protein-calorie malnutrition. Prealbumin noted only 5.0. The Solu-Medrol dose remains the same. Therapeutic bronchoscopy will be done for this patient at the bedside as well. Other additional treatment changes will be made for the patient based on progression of the illness. Supportive care. Other plan of management. Continue sedation. Sedation vacation of the patient for the assessment of mental status will be continued. DVT prophylaxis to be continued. Total time in pulmonary and critical care evaluation and management for the patient today is 38 minutes. LYNDON BERMUDEZ MD CM:PNTRANS [id number] LYNDON CONNER MD 08/24/17 0246 interface
--- NOTE | ~2017-08-21 | PR ---
[place], [place] PROGRESS NOTE NAME: SUZANNE VALDIVIA UNIT #: [id number] ROOM: [facility] DOCTOR: AIDAN CONNER MD,LYNDON BIRTHDATE: [birth year] DOS: 08/29/2017 SUBJECTIVE: The patient was noted comfortable at this time, resting on her bed. She has been noted on oxygen supplementation with the nasal cannula, which has been gradually decreased. She is currently getting 5 liters nasal cannula supplementation decreased from 8 liters yesterday. The oral intake was still noted poor. Low-grade fever was noted. She denies symptoms of headache or diplopia. Denies symptoms of nausea or vomiting. Denies any symptoms of abdominal pain. The patient was continued on the BiPAP as well, which was used last night by the patient. Remaining systems were reviewed. They were noted all negative. OBJECTIVE: VITAL SIGNS: Temperature low grade 99.5 degree Fahrenheit, normal temperature, respiratory rate 18, heart rate 83, blood pressure 80/64-114/69, pulse oxygen saturation on 5 liters nasal cannula 94% saturation decreased from 40% Venturi mask yesterday. HEENT: Head was atraumatic. Eyes nonicterus. NECK: Supple. CARDIOVASCULAR: S1, S2 audible. LUNGS: Decreased breath sounds in the lower portion of the lungs noted bilaterally. There were no crackles or wheezing present. ABDOMEN: Soft, nontender. EXTREMITIES: Without any acute edema. SKIN: Visible skin, no lesions or rashes. MUSCULOSKELETAL: No deformities. CENTRAL NERVOUS SYSTEM: No gross focal neurologic deficit. LABORATORY DATA: CBC today of the patient showed WBC count 9.3, hemoglobin and hematocrit, platelet count were normal. BMP this morning, BUN and creatinine was normal, CO2 of 34. IMAGING STUDIES: The chest x-ray yesterday of the patient shows small bilateral pleural fluid and basilar area of infiltration. IMPRESSION: 1. Acute severe hypoxic respiratory failure that has been noted with gradual resolution. 2. The patient with bilateral pleural fluid secondary to acute pneumonia, noted small at this time, would not require any intervention. 3. Removal of the foreign body, denture from the throat with gastrointestinal bleeding as well and peptic ulcer disease. PLAN OF MANAGEMENT: Continue the patient's current medical management, Use of the BiPAP, oxygen supplementation, titrate the oxygen supplementation to maintain pulse ox saturation 90% or greater. Continue antibiotics and bronchodilators. Monitoring of the chest x-ray of the patient as necessary. Pleural fluid will continue to be monitored, noted small at this time, would not require any acute intervention. [place], [place] PROGRESS NOTE NAME: SUZANNE VALDIVIA UNIT #: [id number] ROOM: [facility] DOCTOR: LYNDON WORTHY MD BIRTHDATE: [birth year] LYNDON BERMUDEZ MD CM:PNTRANS [id number] LYNDON CONNER MD 08/29/172241 interface
[~2017-08-21 18:50] MED LIST: KEFLEX500 M1 PO; PROZAC10 MG PO; XANAX0.5 MG PO
[2017-08-21 19:49] LABS: BASO % 0.1 % (0.0-1.0); HEMATOCRIT 40.8 % (37.0-47.0); HEMOGLOBIN 13.6 g/dl (12.0-16.0); LYMPH # 0.5 10*3/uL (1.3-4.4); LYMPH % 6.7 % (27.0-41.0); MEAN CELL VOLUME 94.7 fl (81.0-99.0); MEAN CORPUSCULAR HGB 31.6 pg (27.0-31.0); MEAN CORPUSCULAR HGB CONC 33.3 g/dl (33.0-37.0); MEAN PLATELET VOLUME 10.4 fl (9.6-12.3); MONO # 0.6 10*3/uL (0.1-1.0); MONO % 7.8 % (3.0-9.0); NEUT # 6.1 10*3/uL (2.3-7.9); NEUT % 84.7 % (47.0-73.0); NUCLEATED RED BLOOD CELL 0.3 % (0.0-0.0); PLATELET COUNT AUTOMATED 221 10*3/uL (130-400); RED BLOOD COUNT 4.31 10*6/uL (4.10-5.10); RED CELL DISTRI WIDTH 14.5 % (0-14.5); WHITE BLOOD COUNT 7.2 10*3/uL (4.8-10.8)
[2017-08-21 19:58] LABS: BILIRUBIN 1+ (NEGATIVE); BLOOD 3+ (NEGATIVE); CLARITY SL CLOUDY (CLEAR); COLOR YELLOW (YELLOW); GLUCOSE NEGATIVE (NEGATIVE); KETONE TRACE (NEGATIVE); LEUKO ESTERASE NEGATIVE (NEGATIVE); NITRITE NEGATIVE (NEGATIVE); SPECIFIC GRAVITY >= 1.030 (1.005-1.030)
[2017-08-21 19:59] LABS: ABG BASE EXCESS -2.7 mmol/L (-2.0-2.0); ABG HCO3 25.4 mmol/l (22-26); ABG O2 SATURATION 99.4 % (95-97); ARTERIAL BLOOD GAS PCO2 60.2 mmHg (35-45); ARTERIAL BLOOD GAS PH 7.244 (7.35-7.45)
[2017-08-21 20:03] LABS: ACT PARTIAL THROMBO TIME 28.8 SECONDS (20.8-31.5); INTERNATIONAL NORM RATIO 1.2 (2.0-3.5)
[2017-08-21 20:06] LABS: ALBUMIN 3.1 gm/dl (3.1-4.5); ALKALINE PHOSPHATASE 93 U/L (45-117); BUN 35 mg/dl (7-24); CHLORIDE 95 mmol/L (98-107); CREATININE 0.99 mg/dL (0.55-1.02); POTASSIUM 5.3 mmol/L (3.5-5.1); SODIUM 135 mmol/L (136-145); TOTAL PROTEIN 6.8 gm/dL (6.4-8.2)
[2017-08-21 20:13] LABS: BACTERIA TRACE; HYALINE CAST TNTC; RBC 0-2 rbc/hpf (0-2)
[2017-08-21 20:20] LABS: URINE AMPHETAMINES < 1000 (1000ng/ml); URINE BARBITURATES < 200 (200ng/ml); URINE BENZODIAZEPINES > 200 (200ng/ml); URINE CANNABINOIDS (THC) < 50 (50ng/ml); URINE COCAINE < 300 (300ng/ml); URINE METHADONE < 300 (300ng/ml); URINE OPIATES < 300 (300ng/ml); URINE PHENCYCLIDINE < 25 (25ng/ml)
[2017-08-21 20:21] LABS: SGOT/AST 2195 IU/L (3-35); SGPT/ALT 1483 U/L (12-78)
[2017-08-21 20:22] LABS: TROPONIN I 0.453 ng/ml (<0.045)
[2017-08-21] MEDS ORDERED: PROAIR HFA8.5 GM INH ×2 (22:07→22:08)
[2017-08-22] VITALS (26 sets, daily range): BP systolic 97–119; BP diastolic 62–84
[2017-08-22 05:49] LABS: ACT PARTIAL THROMBO TIME 28.5 SECONDS (20.8-31.5); INTERNATIONAL NORM RATIO 1.2 (2.0-3.5)
[2017-08-22 06:05] LABS: BASO % 0.1 % (0.0-1.0); HEMATOCRIT 39.3 % (37.0-47.0); HEMOGLOBIN 12.7 g/dl (12.0-16.0); LYMPH # 0.8 10*3/uL (1.3-4.4); LYMPH % 8.8 % (27.0-41.0); MEAN CELL VOLUME 94.2 fl (81.0-99.0); MEAN CORPUSCULAR HGB 30.5 pg (27.0-31.0); MEAN CORPUSCULAR HGB CONC 32.3 g/dl (33.0-37.0); MEAN PLATELET VOLUME 11.1 fl (9.6-12.3); MONO # 0.7 10*3/uL (0.1-1.0); MONO % 7.2 % (3.0-9.0); NEUT # 7.9 10*3/uL (2.3-7.9); NEUT % 83.2 % (47.0-73.0); NUCLEATED RED BLOOD CELL 0.4 % (0.0-0.0); PLATELET COUNT AUTOMATED 188 10*3/uL (130-400); RED BLOOD COUNT 4.17 10*6/uL (4.10-5.10); RED CELL DISTRI WIDTH 14.6 % (0-14.5); WHITE BLOOD COUNT 9.5 10*3/uL (4.8-10.8)
[2017-08-22 06:11] LABS: ALBUMIN 2.7 gm/dl (3.1-4.5); ALKALINE PHOSPHATASE 76 U/L (45-117); BILIRUBIN, DIRECT 0.3 mg/dL (0.0-0.2); BUN 27 mg/dl (7-24); CHLORIDE 101 mmol/L (98-107); CHOLESTEROL 122 mg/dL (<200); CREATININE 0.77 mg/dL (0.55-1.02); HDL CHOLESTEROL 40 mg/dl (40-60); LDL CHOLESTEROL 57 mg/dL (9-159); PHOSPHOROUS 2.6 mg/dL (2.5-4.9); POTASSIUM 5.1 mmol/L (3.5-5.1); SODIUM 139 mmol/L (136-145); TOTAL PROTEIN 5.9 gm/dL (6.4-8.2); TRIGLYCERIDES 125 mg/dl (<150); VLDL CHOLESTEROL 25 mg/dL (6-40)
[2017-08-22 06:30] LABS: ACETAMINOPHEN (TYLENOL) < 2.0 ug/ml (10-30); SGOT/AST 5310 IU/L (3-35); SGPT/ALT 3004 U/L (12-78)
[2017-08-22 07:15] LABS: ABG O2 SATURATION 94.6 % (95-97); ARTERIAL BLOOD GAS PCO2 52.6 mmHg (35-45); ARTERIAL BLOOD GAS PH 7.278 (7.35-7.45); ARTERIAL BLOOD GAS PO2 82.3 mmHg (80-90)
[2017-08-22 07:19] LABS: VITAMIN D, 25-HYDROXY 5.8 ng/mL (30-100)
[2017-08-22 11:23] LABS: ABG BASE EXCESS -3.7 mmol/L (-2.0-2.0); ABG HCO3 23.6 mmol/l (22-26); ABG O2 SATURATION 92.7 % (95-97); ARTERIAL BLOOD GAS PCO2 55.9 mmHg (35-45); ARTERIAL BLOOD GAS PH 7.25 (7.35-7.45); ARTERIAL BLOOD GAS PO2 76.1 mmHg (80-90)
[2017-08-23] VITALS (12 sets, daily range): BP systolic 93–111; BP diastolic 51–66
[2017-08-23 06:01] LABS: ALBUMIN 2.4 gm/dl (3.1-4.5); ALKALINE PHOSPHATASE 61 U/L (45-117); CHLORIDE 105 mmol/L (98-107); POTASSIUM 4.3 mmol/L (3.5-5.1); SODIUM 140 mmol/L (136-145); TOTAL PROTEIN 5.2 gm/dL (6.4-8.2)
[2017-08-23 06:02] LABS: HEMOGLOBIN 10.8 g/dl (12.0-16.0); MEAN CELL VOLUME 93.5 fl (81.0-99.0); MEAN CORPUSCULAR HGB 30.4 pg (27.0-31.0); MEAN CORPUSCULAR HGB CONC 32.5 g/dl (33.0-37.0); MEAN PLATELET VOLUME 10.6 fl (9.6-12.3); NUCLEATED RED BLOOD CELL 0.1 10*3/uL (0.0-0.0); NUCLEATED RED BLOOD CELL 1.1 % (0.0-0.0); PLATELET COUNT AUTOMATED 166 10*3/uL (130-400); RED BLOOD COUNT 3.55 10*6/uL (4.10-5.10); RED CELL DISTRI WIDTH 14.6 % (0-14.5); WHITE BLOOD COUNT 11.4 10*3/uL (4.8-10.8)
[2017-08-23 06:05] LABS: HEMATOCRIT 33.2 % (37.0-47.0)
[2017-08-23 06:11] LABS: BUN 15 mg/dl (7-24); SGOT/AST 1883 IU/L (3-35); SGPT/ALT 2017 U/L (12-78)
[2017-08-23 06:36] LABS: PLATELET SUFFICIENCY NORMAL (NORMAL); TOTAL CELLS COUNTED 100 #CELLS
[2017-08-23 07:52] LABS: ABG BASE EXCESS -0.6 mmol/L (-2.0-2.0); ABG HCO3 26.4 mmol/l (22-26); ABG O2 SATURATION 95.9 % (95-97); ARTERIAL BLOOD GAS PCO2 55.5 mmHg (35-45); ARTERIAL BLOOD GAS PH 7.294 (7.35-7.45)
[2017-08-23 07:53] LABS: ALBUMIN 2.4 gm/dl (3.1-4.5); TOTAL PROTEIN 5.2 gm/dL (6.4-8.2)
[2017-08-23 08:01] LABS: BILIRUBIN, DIRECT 0.4 mg/dL (0.0-0.2)
[2017-08-23 09:09] LABS: HEPATITIS B SURFACE AG Negative (Negative); HEPATITIS C VIRUS ANTIBODY <0.1 s/co (0.0-0.9)
[2017-08-23 11:55] LABS: ABG BASE EXCESS -0.3 mmol/L (-2.0-2.0); ABG HCO3 26.2 mmol/l (22-26); ABG O2 SATURATION 98.7 % (95-97); ARTERIAL BLOOD GAS PCO2 55.5 mmHg (35-45); ARTERIAL BLOOD GAS PH 7.299 (7.35-7.45)
[2017-08-24] VITALS (11 sets, daily range): BP systolic 84–125; BP diastolic 51–79
[2017-08-24 05:39] LABS: ALBUMIN 2.3 gm/dl (3.1-4.5); ALKALINE PHOSPHATASE 55 U/L (45-117); BILIRUBIN, DIRECT 0.2 mg/dL (0.0-0.2); BUN 12 mg/dl (7-24); CHLORIDE 109 mmol/L (98-107); CREATININE 0.43 mg/dL (0.55-1.02); POTASSIUM 4.6 mmol/L (3.5-5.1); SGOT/AST 606 IU/L (3-35); SODIUM 145 mmol/L (136-145); TOTAL PROTEIN 5.2 gm/dL (6.4-8.2)
[2017-08-24 05:47] LABS: SGPT/ALT 1433 U/L (12-78)
[2017-08-24 05:57] LABS: HEMATOCRIT 31.6 % (37.0-47.0); HEMOGLOBIN 10.4 g/dl (12.0-16.0); MEAN CELL VOLUME 94.6 fl (81.0-99.0); MEAN CORPUSCULAR HGB 31.1 pg (27.0-31.0); MEAN CORPUSCULAR HGB CONC 32.9 g/dl (33.0-37.0); MEAN PLATELET VOLUME 10.7 fl (9.6-12.3); NUCLEATED RED BLOOD CELL 0.1 10*3/uL (0.0-0.0); NUCLEATED RED BLOOD CELL 1.1 % (0.0-0.0); PLATELET COUNT AUTOMATED 171 10*3/uL (130-400); RED BLOOD COUNT 3.34 10*6/uL (4.10-5.10); RED CELL DISTRI WIDTH 15.2 % (0-14.5); WHITE BLOOD COUNT 12.2 10*3/uL (4.8-10.8)
[2017-08-24 07:13] LABS: PLATELET SUFFICIENCY NORMAL (NORMAL); TOTAL CELLS COUNTED 100 #CELLS
[2017-08-24 07:40] LABS: ABG HCO3 28.9 mmol/l (22-26); ARTERIAL BLOOD GAS PH 7.344 (7.35-7.45); ARTERIAL BLOOD GAS PO2 96.3 mmHg (80-90)
[2017-08-24 16:04] LABS: ABG BASE EXCESS 3.2 mmol/L (-2.0-2.0); ABG HCO3 28.4 mmol/l (22-26); ARTERIAL BLOOD GAS PH 7.381 (7.35-7.45); ARTERIAL BLOOD GAS PO2 80.7 mmHg (80-90)
[2017-08-25] VITALS: BP 110/56
[2017-08-25 04:00] VITALS: BP 116/66
[2017-08-25 05:32] LABS: HEMATOCRIT 32.2 % (37.0-47.0); HEMOGLOBIN 10.5 g/dl (12.0-16.0); MEAN CELL VOLUME 93.6 fl (81.0-99.0); MEAN CORPUSCULAR HGB 30.5 pg (27.0-31.0); MEAN CORPUSCULAR HGB CONC 32.6 g/dl (33.0-37.0); MEAN PLATELET VOLUME 10.2 fl (9.6-12.3); NUCLEATED RED BLOOD CELL 0.1 10*3/uL (0.0-0.0); NUCLEATED RED BLOOD CELL 0.3 % (0.0-0.0); PLATELET COUNT AUTOMATED 173 10*3/uL (130-400); RED BLOOD COUNT 3.44 10*6/uL (4.10-5.10); RED CELL DISTRI WIDTH 15.4 % (0-14.5); WHITE BLOOD COUNT 14.4 10*3/uL (4.8-10.8)
[2017-08-25 05:41] LABS: ALBUMIN 2.5 gm/dl (3.1-4.5); BUN 12 mg/dl (7-24); CHLORIDE 110 mmol/L (98-107); CHOLESTEROL 135 mg/dL (<200); CREATININE 0.39 mg/dL (0.55-1.02); PHOSPHOROUS 1.4 mg/dL (2.5-4.9); POTASSIUM 4.2 mmol/L (3.5-5.1); SGOT/AST 228 IU/L (3-35); SODIUM 147 mmol/L (136-145); TOTAL PROTEIN 5.3 gm/dL (6.4-8.2); TRIGLYCERIDES 130 mg/dl (<150); VLDL CHOLESTEROL 26 mg/dL (6-40)
[2017-08-25 05:45] LABS: ALKALINE PHOSPHATASE 58 U/L (45-117); HDL CHOLESTEROL 40 mg/dl (40-60); LDL CHOLESTEROL 69 mg/dL (9-159); SGPT/ALT 1053 U/L (12-78)
[2017-08-25 06:01] LABS: TOTAL CELLS COUNTED 100 #CELLS
[2017-08-25 06:02] LABS: PLATELET SUFFICIENCY NORMAL (NORMAL); POLYCHROMASIA SLIGHT
[2017-08-25 08:00] VITALS: BP 105/62
[2017-08-25 12:00] VITALS: BP 113/61
[2017-08-25 13:02] LABS: ABG BASE EXCESS 5.3 mmol/L (-2.0-2.0); ABG HCO3 30.5 mmol/l (22-26); ABG O2 SATURATION 97.1 % (95-97); ARTERIAL BLOOD GAS PCO2 50.7 mmHg (35-45); ARTERIAL BLOOD GAS PH 7.398 (7.35-7.45)
[2017-08-25 16:00] VITALS: BP 122/67
[2017-08-25 16:13] LABS: ACID FAST SMEAR Negative (.); ACID FAST SPEC PROCESSING Concentration (.)
[2017-08-25 20:00] VITALS: BP 126/73
[2017-08-26] VITALS: BP 131/74
[2017-08-26 04:00] VITALS: BP 135/84
[2017-08-26 05:27] LABS: ALBUMIN 2.6 gm/dl (3.1-4.5); ALKALINE PHOSPHATASE 56 U/L (45-117); BUN 12 mg/dl (7-24); CHLORIDE 109 mmol/L (98-107); CREATININE 0.47 mg/dL (0.55-1.02); POTASSIUM 4.7 mmol/L (3.5-5.1); SGOT/AST 104 IU/L (3-35); SGPT/ALT 733 U/L (12-78); SODIUM 150 mmol/L (136-145); TOTAL PROTEIN 5.3 gm/dL (6.4-8.2)
[2017-08-26 08:00] VITALS: BP 121/85
[2017-08-26 11:29] VITALS: BP 123/70
[2017-08-26 16:00] VITALS: BP 124/68
[2017-08-26 20:00] VITALS: BP 112/64
[2017-08-27] VITALS: BP 129/75
[2017-08-27 04:00] VITALS: BP 111/59
[2017-08-27 05:54] LABS: ALBUMIN 2.5 gm/dl (3.1-4.5); ALKALINE PHOSPHATASE 53 U/L (45-117); BUN 13 mg/dl (7-24); CHLORIDE 101 mmol/L (98-107); CREATININE 0.41 mg/dL (0.55-1.02); PHOSPHOROUS 2.6 mg/dL (2.5-4.9); POTASSIUM 4.2 mmol/L (3.5-5.1); SGOT/AST 54 IU/L (3-35); SGPT/ALT 530 U/L (12-78); SODIUM 141 mmol/L (136-145); TOTAL PROTEIN 4.9 gm/dL (6.4-8.2)
[2017-08-27 06:06] LABS: HEMATOCRIT 33.8 % (37.0-47.0); HEMOGLOBIN 11.1 g/dl (12.0-16.0); MEAN CELL VOLUME 92.9 fl (81.0-99.0); MEAN CORPUSCULAR HGB 30.5 pg (27.0-31.0); MEAN CORPUSCULAR HGB CONC 32.8 g/dl (33.0-37.0); MEAN PLATELET VOLUME 10.3 fl (9.6-12.3); NUCLEATED RED BLOOD CELL 0.2 % (0.0-0.0); PLATELET COUNT AUTOMATED 181 10*3/uL (130-400); RED BLOOD COUNT 3.64 10*6/uL (4.10-5.10); RED CELL DISTRI WIDTH 14.9 % (0-14.5); WHITE BLOOD COUNT 11.6 10*3/uL (4.8-10.8)
[2017-08-27 06:32] LABS: POLYCHROMASIA SLIGHT; TOTAL CELLS COUNTED 100 #CELLS; TOXIC GRANULATION SLIGHT
[2017-08-27 06:33] LABS: PLATELET SUFFICIENCY NORMAL (NORMAL)
[2017-08-27 08:00] VITALS: BP 115/59
[2017-08-27 12:00] VITALS: BP 127/72
[2017-08-27 16:01] VITALS: BP 128/76
[2017-08-27 20:00] VITALS: BP 122/72
[2017-08-28] VITALS: BP 123/70
[2017-08-28 04:00] VITALS: BP 117/62
[2017-08-28 06:12] LABS: BUN 12 mg/dl (7-24); CHLORIDE 100 mmol/L (98-107); CREATININE 0.37 mg/dL (0.55-1.02); POTASSIUM 3.9 mmol/L (3.5-5.1); SODIUM 140 mmol/L (136-145); TROPONIN I 0.026 ng/ml (<0.045)
[2017-08-28 06:15] LABS: HEMATOCRIT 38.2 % (37.0-47.0); HEMOGLOBIN 12.8 g/dl (12.0-16.0); MEAN CELL VOLUME 92.5 fl (81.0-99.0); MEAN CORPUSCULAR HGB CONC 33.5 g/dl (33.0-37.0); MEAN PLATELET VOLUME 10.1 fl (9.6-12.3); PLATELET COUNT AUTOMATED 188 10*3/uL (130-400); RED BLOOD COUNT 4.13 10*6/uL (4.10-5.10); RED CELL DISTRI WIDTH 14.7 % (0-14.5); WHITE BLOOD COUNT 12.3 10*3/uL (4.8-10.8)
[2017-08-28 07:16] LABS: TOTAL CELLS COUNTED 100 #CELLS
[2017-08-28 07:17] LABS: PLATELET SUFFICIENCY NORMAL (NORMAL)
[2017-08-28 08:00] VITALS: BP 112/73
[2017-08-28 11:18] VITALS: BP 120/68
[2017-08-28 12:00] LABS: ABG BASE EXCESS 8.4 mmol/L (-2.0-2.0); ABG HCO3 33.4 mmol/l (22-26); ABG O2 SATURATION 94.7 % (95-97); ARTERIAL BLOOD GAS PCO2 48.7 mmHg (35-45); ARTERIAL BLOOD GAS PH 7.452 (7.35-7.45)
[2017-08-28 16:00] VITALS: BP 106/64
[2017-08-28 19:56] VITALS: BP 100/57
[2017-08-29] VITALS: BP 111/63
[2017-08-29 04:00] VITALS: BP 114/69
[2017-08-29 05:10] LABS: BASO % 0.1 % (0.0-1.0); EOS # 0.1 10*3/uL (0.0-0.4); EOS % 0.9 % (1.0-4.0); HEMATOCRIT 37.7 % (37.0-47.0); HEMOGLOBIN 12.3 g/dl (12.0-16.0); LYMPH # 2.2 10*3/uL (1.3-4.4); LYMPH % 23.5 % (27.0-41.0); MEAN CELL VOLUME 92.2 fl (81.0-99.0); MEAN CORPUSCULAR HGB 30.1 pg (27.0-31.0); MEAN CORPUSCULAR HGB CONC 32.6 g/dl (33.0-37.0); MEAN PLATELET VOLUME 9.8 fl (9.6-12.3); MONO # 0.8 10*3/uL (0.1-1.0); NEUT % 64.8 % (47.0-73.0); PLATELET COUNT AUTOMATED 185 10*3/uL (130-400); RED BLOOD COUNT 4.09 10*6/uL (4.10-5.10); RED CELL DISTRI WIDTH 14.8 % (0-14.5); WHITE BLOOD COUNT 9.3 10*3/uL (4.8-10.8)
[2017-08-29 05:23] LABS: BUN 11 mg/dl (7-24); CHLORIDE 100 mmol/L (98-107); CREATININE 0.44 mg/dL (0.55-1.02); POTASSIUM 3.6 mmol/L (3.5-5.1); SODIUM 140 mmol/L (136-145)
[2017-08-29 08:00] VITALS: BP 108/64
[2017-08-29 12:00] VITALS: BP 117/63
[2017-08-29] MEDS ORDERED: SOLU-MEDRO40 MG/1 ML IV (15:04)
[2017-08-29] MEDS ORDERED: Vitamin D PO (15:04)
[2017-08-29] MEDS ORDERED: PROTONIX40 M1 PO (15:04)
[2017-08-29] MEDS ORDERED: Nystatin Cream15 GM T (15:04)
[2017-08-29] MEDS ORDERED: Carafate1 GM/10 ML PO (15:04)
[2017-08-29] MEDS ORDERED: LEVOFLOXAC750 MG/150 IV (15:04)
[2017-08-29] MEDS ORDERED: Nystatin 100,000 UNI PO (15:04)
[2017-08-29 16:00] VITALS: BP 115/67
== END 2017-08-29 16:34 | disposition short-term general hospital (02) | DRG 871 ==
LOC: ED 18:50 → ICCU 20:14 → EDHOLD 20:14 → ICCU 20:43
PROVIDERS: Emergency Medicine; Emergency Medicine Emergency Medical Services; Family Medicine; Internal Medicine; Internal Medicine Critical Care Medicine; Internal Medicine Gastroenterology
PROC: 0BH17EZ Insertion of Endotracheal Airway into Trachea, Via Natural or Artificial Opening (ICD-10-PCS; principal; 2017-08-21)
PROC: 5A1945Z Respiratory Ventilation, 24-96 Consecutive Hours (ICD-10-PCS; principal; 2017-08-21)
PROC: 0BC38ZZ Extirpation of Matter from Right Main Bronchus, Via Natural or Artificial Opening Endoscopic (ICD-10-PCS; 2017-08-24)
PROC: 0DJ08ZZ Inspection of Upper Intestinal Tract, Via Natural or Artificial Opening Endoscopic (ICD-10-PCS; 2017-08-24)
PROC: 0BC78ZZ Extirpation of Matter from Left Main Bronchus, Via Natural or Artificial Opening Endoscopic (ICD-10-PCS; 2017-08-24)
PROC: 0BC98ZZ Extirpation of Matter from Lingula Bronchus, Via Natural or Artificial Opening Endoscopic (ICD-10-PCS; 2017-08-24)
PROC: 0BC18ZZ Extirpation of Matter from Trachea, Via Natural or Artificial Opening Endoscopic (ICD-10-PCS; 2017-08-24)
PROC: 0BC48ZZ Extirpation of Matter from Right Upper Lobe Bronchus, Via Natural or Artificial Opening Endoscopic (ICD-10-PCS; 2017-08-24)
PROC: 0BC58ZZ Extirpation of Matter from Right Middle Lobe Bronchus, Via Natural or Artificial Opening Endoscopic (ICD-10-PCS; 2017-08-24)
PROC: 0BC88ZZ Extirpation of Matter from Left Upper Lobe Bronchus, Via Natural or Artificial Opening Endoscopic (ICD-10-PCS; 2017-08-24)
PROC: 0BC68ZZ Extirpation of Matter from Right Lower Lobe Bronchus, Via Natural or Artificial Opening Endoscopic (ICD-10-PCS; 2017-08-24)
PROC: 0BCB8ZZ Extirpation of Matter from Left Lower Lobe Bronchus, Via Natural or Artificial Opening Endoscopic (ICD-10-PCS; 2017-08-24)
PROC: 5A09357 Assistance with Respiratory Ventilation, Less than 24 Consecutive Hours, Continuous Positive Airway Pressure (ICD-10-PCS; 2017-08-26)
PROC: 5A09357 Assistance with Respiratory Ventilation, Less than 24 Consecutive Hours, Continuous Positive Airway Pressure (ICD-10-PCS; 2017-08-27)
DX: A41.9 Sepsis, unspecified organism (principal); I21.A1 Myocardial infarction type 2; J96.21 Acute and chronic respiratory failure with hypoxia; E43 Unspecified severe protein-calorie malnutrition; J11.00 Influenza due to unidentified influenza virus with unspecified type of pneumonia; K72.00 Acute and subacute hepatic failure without coma; I50.31 Acute diastolic (congestive) heart failure; K25.4 Chronic or unspecified gastric ulcer with hemorrhage; T17.590A Other foreign object in bronchus causing asphyxiation, initial encounter; J96.22 Acute and chronic respiratory failure with hypercapnia; E87.2 Acidosis; K25.3 Acute gastric ulcer without hemorrhage or perforation; J44.1 Chronic obstructive pulmonary disease with (acute) exacerbation; E67.8 Other specified hyperalimentation; X58.XXXA Exposure to other specified factors, initial encounter; E87.8 Other disorders of electrolyte and fluid balance, not elsewhere classified; E87.5 Hyperkalemia; R65.20 Severe sepsis without septic shock; E80.6 Other disorders of bilirubin metabolism; R74.0 Nonspecific elevation of levels of transaminase and lactic acid dehydrogenase [LDH]; E83.41 Hypermagnesemia; E55.9 Vitamin D deficiency, unspecified; Z79.899 Other long term (current) drug therapy; Z90.49 Acquired absence of other specified parts of digestive tract; Y93.89 Activity, other specified; Y92.89 Other specified places as the place of occurrence of the external cause; Y99.8 Other external cause status; Z68.22 Body mass index [BMI] 22.0-22.9, adult